=== PATIENT | female | born 1950 | race Caucasian/White ===

== ENCOUNTER 2019-05-03 23:39 | Emergency (ER) | payer MEDICARE, MEDICAID ==
--- NOTE | 2019-05-04 01:26 | EDM.PDOC ---
ED HPI GENERAL MEDICAL PROBLEM - General Chief Complaint: Lower Extremity Injury/Pain Stated Complaint: [facility] Time Seen by Provider: 05/04/19 01:04 Source of Information: Reports: Patient, Family (Daughter), Longterm Records , RN Notes Reviewed History Limitations: Reports: No Limitations - History of Present Illness INITIAL COMMENTS - FREE TEXT/NARRATIVE: The patient's daughter states that the patient moved into [facility] in [place] this past March. The patient has a history of chronic lower extremity edema due to venous insufficiency, and the patient tells me that the snf staff applies compression stockings every morning, and remove them at bedtime. The patient is essentially wheelchair bound, but her legs are dependent when in the chair. The patient is now brought to the ED by EMS due to a concern of possible increased right lower extremity edema and a bruising appearance within some chronic erythema on the right lower extremity. The patient states that her lower extremities are painful, in general, although she denies pain specifically where she has the bruising appearance. The patient denies any recent injury to either of her lower extremities. The patient's past medical history includes paroxysmal atrial fibrillation, however, her medication list does not include an anticoagulant. The patient denies recent dyspnea, pleuritic chest pain, or palpitations. The patient's PCP is Dr. Koby Nguyen. Right Lower Leg Pain Score (Numeric/FACES): 8 - Related Data Allergies Allergy/AdvReac Type Severity Reaction Status Date / Time codeine Allergy Swelling Verified 05/03/19 23:41 Sulfa (Sulfonamide Allergy Cannot Verified 05/03/19 23:41 Antibiotics) Remember Home Meds: Home Meds Acetaminophen 650 mg PO DAILY 05/03/19 [History] Acetaminophen/HYDROcodone [[place] 325-10 MG] 1 tab PO Q4H PRN 05/03/19 [History] Aspirin 81 mg PO DAILY 05/03/19 [History] Calcium Carbonate [Calci-Chew] 500 mg PO Q2H PRN 05/03/19 [History] Calcium Carbonate/Vitamin D3 [Calcium 500-Vit D3 200 Caplet] 2 tab PO BID [History] Cholecalciferol (Vitamin D3) [Vitamin D3] 400 unit PO DAILY 05/03/19 [History] Cyanocobalamin (Vitamin B-12) [B-12] 1,000 mcg PO DAILY 05/03/19 [History] Ferrous Sulfate 325 mg PO BID 05/03/19 [History] Furosemide [Lasix] 80 mg PO BID 05/03/19 [History] Menthol [Biofreeze] 1 dose TOP QID PRN 05/03/19 [History] Metoprolol Succinate [Toprol XL] 25 mg PO DAILY 05/03/19 [History] Polyethylene Glycol 3350 [MiraLAX] 17 gm PO DAILY 05/03/19 [History] Pregabalin [Lyrica] 200 mg PO TID 05/03/19 [History] Ranitidine HCl [Zantac 75] 75 mg PO DAILY 05/03/19 [History] Sennosides/Docusate Sodium [Senna-S] 1 tab PO BID PRN 05/03/19 [History] Sennosides/Docusate Sodium [Senna-S] 2 tab PO BID 05/03/19 [History] Venlafaxine [Effexor XR] 150 mg PO DAILY 05/03/19 [History] traMADol [Ultram] 50 mg PO BID 05/03/19 [History] traMADol [Ultram] 50 mg PO Q6H PRN 05/03/19 [History] Past Medical History HEENT History: Reports: Impaired Vision Other HEENT History: Wears glasses, upper and lower dentures Cardiovascular History: Reports: Afib (paroxysmal), Heart Failure, Hypertension Gastrointestinal History: Reports: GERD Genitourinary History: Reports: Chronic Renal Insuffiency, Urinary Incontinence (overactive bladder) 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: Reports: Musculoskeletal History: Reports: Fracture (left wrist), Osteoporosis Neurological History: Reports: CVA (right hemiparesis?), Neuropathy, Diabetic Psychiatric History: Reports: Anxiety, Depression, Other (See Below) (Chronic pain) Endocrine/Metabolic History: Reports: Diabetes, 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 Left wrist.) Social & Family History - Tobacco Use Smoking Status *Q: Former Smoker Years of Tobacco use: 51 Packs/Tins Daily: 2 Month/Year Tobacco Last Used: Quit 2014 - Alcohol Use Alcohol Use History: Yes Alcohol Use Frequency: Socially - Recreational Drug Use Recreational Drug Use: No - Living Situation & Occupation Living situation: Reports: , Extended Care Facility ([facility]) Occupation: Retired Review of Systems - Review of Systems Review Of Systems: ROS reveals no pertinent complaints other than HPI. GI/Abdominal: Reports: Constipation (chronic) ED EXAM, GENERAL - Physical Exam Exam: See Below Exam Limited By: No Limitations General Appearance: Alert, WD/WN, No Apparent Distress Eye Exam: Bilateral Eye: EOMI, Normal Inspection Ears: Normal External Exam, Hearing Grossly Normal Nose: Normal Inspection Throat/Mouth: Normal Inspection, Normal Lips, Normal Voice, No Airway Compromise Head: Atraumatic, Normocephalic Neck: Normal Inspection, Full Range of Motion Respiratory/Chest: No Respiratory Distress, Lungs Clear, Normal Breath Sounds, No Accessory Muscle Use Cardiovascular: Normal Peripheral Pulses, Regular Rate, Rhythm, No Gallop, No JVD, No Murmur, No Rub Peripheral Pulses: 4+: Radial (L), Radial (R) GI/Abdominal: Normal Bowel Sounds, Soft, Non-Tender, No Organomegaly, No Distention, No Abnormal Bruit, No Mass, Other (Obese) (Female) Exam: Deferred Rectal (Female) Exam: Deferred Extremities: Normal Capillary Refill, Other (4+ pitting pretibial edema bilaterally, Rt > Lt. Erythematous hyperpigmentation to both legs, Rt > Lt, neither with significant associated calor. Areas of ecchymosis, consistent with varicose veins, noted to both legs, some within the areas of erythema, some without. There is generalized tenderness to both legs, but nonfocal.) Neurological: Alert, Oriented, No Motor/Sensory Deficits Psychiatric: Normal Affect Skin Exam: Warm, Dry, Intact, Normal Color, No Rash Course - Vital Signs Last Recorded V/S: Last Vital Signs Temp 36.4 C 05/03/19 23:41 Pulse 58 L 05/03/19 23:41 Resp 18 05/03/19 23:41 BP 137/92 H 05/03/19 23:41 Pulse Ox 96 05/03/19 23:41 - Re-Assessments/Exams Free Text/Narrative Re-Assessment/Exam: 05/04/19 01:25 The patient has chronic venous stasis with hyperpigmentation and some varicose vein dilatation to her both of her lower extremities, worse on the right today than usual. I think the likelihood of a DVT is low, however, the patient is not on an anticoagulant, therefore it is possible. I have ordered a Doppler ultrasound of the right lower extremity to evaluate. 05/04/19 03:44 Notified by Natali GONZALEZ that the water quality technician informed her that the ultrasound is negative for a DVT. Formal read per She is pending, but in the meantime, we can prepare to discharge the patient back to the snf. 05/04/19 03:48 Preliminary Doppler results discussed with the patient and her daughter. They are agreeable to returning the patient back to [facility]. I'm recommending continued compression stockings daily. 05/04/19 04:20 Doppler ultrasound of the right lower extremity is read by She as " Subcutaneous edema. No evidence of deep vein thrombosis." Departure - Departure Time of Disposition: 03:49 Disposition: DC/Tfer to Custodial Care 63 Condition: Good Clinical Impression: Chronic venous stasis dermatitis of both lower extremities - Discharge Information *PRESCRIPTION DRUG MONITORING PROGRAM REVIEWED*: Not Applicable *COPY OF PRESCRIPTION DRUG MONITORING REPORT IN PATIENT GRIS: Not Applicable Instructions: Stasis Dermatitis Referrals: Koby Nguyen MD [Primary Care Provider] - Forms: ED Department Discharge Additional Instructions: Ms. Chau was seen in the emergency room for lower extremity edema and bruised appearance, worse on the right than the left. Workup in the ER included a Doppler ultrasound of her right lower extremity, which returned negative for DVT. Based on her history, physical exam, and Doppler ultrasound result, Ms. Chau appears to be suffering from chronic venous stasis changes, due to chronic lower extremity venous stasis. We recommend applying compression stockings to both legs every morning, removing them at bedtime. If any other problems, please do not hesitate to return Ms. Chau to the ER.
--- NOTE | 2019-05-04 11:33 | US ---
Right lower extremity deep venous ultrasound: Duplex and color flow imaging was obtained of the right common femoral, proximal greater saphenous, superficial femoral, popliteal, posterior tibial and peroneal veins. Left common femoral vein was also evaluated. Technologist's note: Study was suboptimal and technically difficult due to patient body habitus and swelling. Normal phasic flow, augmentation and compression is seen. Impression: 1. No evidence of deep venous thrombosis within the right lower extremity or left common femoral vein. Diagnostic code #1 I agree with preliminary report from [facility], finalized on 05/04/19, 5:12 AM Central Time
== END 2019-05-04 06:30 ==
LOC: SUPCPDRO 23:39 → JD.ED 23:39
DX: I87.2 Venous insufficiency (chronic) (peripheral) (principal); I13.0 Hypertensive heart and chronic kidney disease with heart failure and stage 1 through stage 4 chronic kidney disease, or unspecified chronic kidney disease; I50.9 Heart failure, unspecified; N18.9 Chronic kidney disease, unspecified; E11.22 Type 2 diabetes mellitus with diabetic chronic kidney disease; E66.9 Obesity, unspecified; E03.9 Hypothyroidism, unspecified; D64.9 Anemia, unspecified; E11.40 Type 2 diabetes mellitus with diabetic neuropathy, unspecified; Z98.41 Cataract extraction status, right eye; Z98.42 Cataract extraction status, left eye; Z90.710 Acquired absence of both cervix and uterus; Z98.51 Tubal ligation status; Z90.722 Acquired absence of ovaries, bilateral; Z98.84 Bariatric surgery status; Z98.890 Other specified postprocedural states; Z79.82 Long term (current) use of aspirin; Z79.899 Other long term (current) drug therapy; Z86.73 Personal history of transient ischemic attack (TIA), and cerebral infarction without residual deficits; Z88.2 Allergy status to sulfonamides; Z88.5 Allergy status to narcotic agent; Z87.891 Personal history of nicotine dependence
CPT/HCPCS: 93971-26-RT; 93971-RT; 99282; 99284-25